=== PATIENT | female | born 1980 | race Caucasian/White ===

== ENCOUNTER → 2020-07-24 | Outpatient (CLI) | payer BC ==
--- NOTE | 2020-07-24 10:21 | Diagnostic Imaging Report ---
INDICATION: Routine screening. No prior mammograms are available for comparison. This a baseline study. 2-D and 3-D bilateral screening mammography was performed with CAD. Bilateral subpectoral breast implants are noted. Implant contours appear smooth. There is no evidence of extracapsular rupture. Breast parenchyma is heterogeneously dense, limiting the sensitivity of mammography. There is a nodular density noted in the right breast superiorly on the implant displaced MLO view. This most likely represents intraparenchymal lymph node. No other masses are seen. No malignant appearing microcalcifications are identified. Axillae are unremarkable. IMPRESSION: BI-RADS 0 Right breast nodular density. Additional views are recommended for further evaluation. ACR BI-RADS Category 0: Incomplete. (Needs additional imaging evaluation). Result letter will be mailed to the patient. Note: At least 10% of breast cancer is not imaged by mammography. Dictated by: Dictated on workstation # [id number]
== END ==
LOC: RAD 08:53
PROVIDERS: ATTEND Family Medicine
DX: Z12.31 Encounter for screening mammogram for malignant neoplasm of breast (principal)
CPT/HCPCS: 77063; 77067

== ENCOUNTER → 2020-07-30 | Outpatient (CLI) | payer BC ==
--- NOTE | 2020-07-30 15:41 | Diagnostic Imaging Report ---
INDICATION: Right breast density. Patient presents for additional views. Correlation is made with recent screening study from 07/24/2020. Unilateral right 2-D and 3-D diagnostic mammography was performed including exaggerated CC implant displaced view as well as spot compression MLO implant displaced view. There is some minimal residual nodular density on the MLO view in the upper outer right breast approximately 7 cm from the nipple. Further evaluation with of this area with ultrasound is recommended. No other abnormality is seen. IMPRESSION: BI-RADS 0 Minimal residual nodularity upper outer right breast, as described. Further evaluation with ultrasound is recommended and will be performed today. ACR BI-RADS Category 0: Incomplete. (Needs additional imaging evaluation). Result letter will be mailed to the patient. Note: At least 10% of breast cancer is not imaged by mammography. Dictated by: Dictated on workstation # [id number]
--- NOTE | 2020-07-30 17:19 | Diagnostic Imaging Report ---
INDICATION: Right breast density. The study is performed for further evaluation. CORRELATION is made with diagnostic mammogram earlier this same day and a screening mammogram from 07/24/2020. FINDINGS: Sonographic interrogation of the upper outer right breast was performed. There is a hypoechoic nodule just below the skin surface at the 10:00 location, 7 cm from the nipple measuring 7 mm x 2 mm x 7 mm. This has the appearance of an intraparenchymal lymph node. No other abnormalities are seen. IMPRESSION: BI-RADS 2. Probable intraparenchymal lymph node at the 10:00 location of the right breast, accounting for the mammographic density. The patient may return to routine annual screening mammography. Dictated by: Dictated on workstation # [id number]
== END ==
LOC: RAD 13:31
PROVIDERS: ATTEND Family Medicine
DX: N63.11 Unspecified lump in the right breast, upper outer quadrant (principal)
CPT/HCPCS: 76642; 77065; G0279

== ENCOUNTER → 2021-03-11 | Outpatient (CLI) | payer BC ==
--- NOTE | 2021-03-11 18:49 | Diagnostic Imaging Report ---
INDICATION: Shoulder nodule. EXAMINATION: The palpable lesion corresponds to a well-circumscribed mildly echogenic nonvascularized ovoid structure which could be easily deformed with overlying pressure. It measuring 2 cm in length x 8 mm in the remaining depth and transverse dimensions. Sonographically and by palpation description it is most consistent with a small lipoma, however, fatty composition cannot be confirmed with ultrasound. IMPRESSION: 1. The palpable nodule is a nonvascularized structure with sonographic features compatible with lipoma but fatty composition cannot be confirmed with ultrasound. If this is a new or enlarging finding or if it is painful, correlative MR through the area suggested to confirm likely fatty composition. 2. No other abnormality. Dictated by: Dictated on workstation # [id number]
== END ==
LOC: RAD 15:15
PROVIDERS: ATTEND Family Medicine
DX: R22.32 Localized swelling, mass and lump, left upper limb (principal)
CPT/HCPCS: 76881

== ENCOUNTER → 2023-04-14 | Outpatient (CLI) | payer BC, OTHER ==
--- NOTE | 2023-04-14 12:34 | Diagnostic Imaging Report ---
Indication: Routine screening. Comparison is made with prior mammogram from 07/24/2020. 2-D and 3-D bilateral screening mammography was performed with CAD. Bilateral subpectoral breast implants are again noted. Implant contours are smooth without evidence of extracapsular rupture. Small nodule in the upper outer right breast previously noted is again seen and appears stable. No new mass or malignant-appearing microcalcifications are seen. Axillae are unremarkable. IMPRESSION: BI-RADS Category 2 No mammographic features suspicious for malignancy are identified. ACR BI-RADS Category 2: Benign findings. Result letter will be mailed to the patient. Note: At least 10% of breast cancer is not imaged by mammography. Dictated by: Dictated on workstation # [id number]
== END ==
LOC: RAD 10:12
PROVIDERS: ATTEND Family Medicine
DX: Z12.31 Encounter for screening mammogram for malignant neoplasm of breast (principal)
CPT/HCPCS: 77063; 77067